=== PATIENT | female | born 1960 | race Caucasian/White ===

== ENCOUNTER 2017-04-25 16:48 | Emergency (ER) | payer MEDICAID ==
[2017-06-20] MEDS ORDERED: MIDODRINE HCL5 MG PO (08:14)
[2017-06-20] MEDS ORDERED: ASPIRIN EC81 M1 PO (08:15)
[2017-06-20] MEDS ORDERED: [UNRECOGNIZED DRUG - OTHER] PO (08:15)
[2017-06-21 08:24] VITALS: BMI 26.1
== END 2017-04-25 19:15 | disposition home or self-care (01) ==
LOC: D.ER 16:48
DX: M77.9 Enthesopathy, unspecified (principal); F17.200 Nicotine dependence, unspecified, uncomplicated

== ENCOUNTER → 2017-05-21 11:06 | Outpatient (CLI) | payer MEDICAID ==
[~2017-05-21 11:06] MED LIST: ASPIRIN EC81 M1 PO; MEPERIDINE HCL50 MG PO; MIDODRINE HCL5 MG PO; [UNRECOGNIZED DRUG - OTHER] PO
[2017-06-21 08:24] VITALS: BMI 26.1
== END | disposition home or self-care (01) ==
LOC: D.MRI 05-08 10:30
DX: M25.531 Pain in right wrist (principal)

== ENCOUNTER 2017-06-21 06:15 | Day surgery (SDC) | payer MEDICAID ==
[2017-06-20 09:29] LABS: HEMOGLOBIN 13.4 g/dL (12-16); MCH 32.4 pg (26.0-34.0); MCHC 33.5 g/dL (31.0-37.0); MCV 96.6 fL (80.0-100.0); MEAN PLATELET VOLUME 9.9 fL (7.4-10.4); RBC 4.14 10x6/uL (4.00-5.40); RDW 13.5 % (11.5-14.5); WBC 7.6 10x3/uL (4.8-10.8)
[~2017-06-21] VITALS: Ht 160 cm; Wt 66.7 kg
--- NOTE | ~2017-06-21 | OP ---
PATIENT NAME: LOBO ESPINOZA MEDICAL RECORD: [id number] :60 LOCATION:[facility] ADMISSION DATE: SURGEON: CHERY BLACK MD DATE OF OPERATION: 06/21/2017 PREOPERATIVE DIAGNOSIS: Recurrent de Quervain stenosing tenosynovitis of the right wrist. POSTOPERATIVE DIAGNOSIS: Recurrent de Quervain stenosing tenosynovitis of the right wrist. PROCEDURE: De Quervain's release. SURGEON: Chery Black MD ANESTHESIA: General. INTRAOPERATIVE COMPLICATIONS: None. SUMMARY OF PATHOLOGIC FINDINGS: The patient had a very scarred in superficial branch of the radial nerve and a recurrence of her stenotic tenosynovitis likely causing the patient's symptoms of the neuropraxia as well as pain at the radial styloid of the right upper extremity. OPERATIVE SUMMARY IN DETAIL: After obtaining the appropriate preoperative orthopedic surgery consent as well as anesthetic consultation, evaluation and clearance, the patient was brought to the operating room and placed on the operating room table in supine position. After adequate general laryngeal mask airway was administered, tourniquet was placed about the proximal aspect of the right upper extremity. Right upper extremity was then prepped and draped in routine sterile fashion. The arm was elevated and exsanguinated and tourniquet was insufflated to 250 mmHg. An incision was made over the radial styloid in line with the previous incision. Gentle dissection was carried down. The superficial branch of the radial nerve was identified and it was grossly adherent to scar tissue in the area. Small 6-0 Prolenes were identified from previous operation. These were all removed and then an incision was made in the tendon sheath immediately revealing synovial fluid and synovitis. Parts of the synovitis were removed. The sheath was excised in its entirety. At this point, the wound was irrigated and then closed with 4-0 Prolene in running fashion. The area was locally infiltrated with 0.25% Marcaine plain. Sterile dressings were applied. The patient was awakened and taken to the recovery room in stable condition. All final needle and sponge counts were correct. TRANSINT:[id number] Voice Confirmation ID: [id number] DOCUMENT ID: [id number] CHERY BLACK MD at 1349 CC: [id number] DICTATION DATE: 06/21/17 1021 [facility] OPERATOR: 06/21/17 1556 [facility] 06/21/17 [id number] [place] [address]
[~2017-06-21 06:15] MED LIST changes: -MEPERIDINE HCL50 MG PO
[2017-06-21 08:24] VITALS: BP 104/43; Ht 160 cm; Wt 66.7 kg
[2017-06-21] MEDS ORDERED: MEPERIDINE HCL50 MG PO (10:18)
== END 2017-06-21 12:15 | disposition home or self-care (01) ==
LOC: D.OPS 06:15 → D.PAN 07:30 → D.OPS 08:45
PROVIDERS: Orthopaedic Surgery
DX: M65.4 Radial styloid tenosynovitis [de Quervain] (principal); Z01.812 Encounter for preprocedural laboratory examination

== ENCOUNTER 2017-07-02 17:36 | Emergency (ER) | payer MEDICAID ==
[2017-06-21 08:24] VITALS: BMI 26.1
[~2017-07-02 17:36] MED LIST changes: +MEPERIDINE HCL50 MG PO
== END 2017-07-02 20:35 | disposition home or self-care (01) ==
LOC: D.ER 17:36
DX: G89.18 Other acute postprocedural pain (principal); F17.200 Nicotine dependence, unspecified, uncomplicated

== ENCOUNTER 2017-07-31 09:04 | Emergency (ER) | payer MEDICAID ==
[~2017-07-31] VITALS: Ht 160 cm; Wt 65.5 kg
[2017-07-31 09:13] VITALS: Ht 160 cm; Wt 65.5 kg
[2017-07-31 11:15] LABS: ALBUMIN 3.6 g/dL (3.4-5.0); ALKALINE PHOSPHATASE 97 U/L (46-116); ALT (SGPT) 12 U/L (10-68); BILIRUBIN - TOTAL 0.34 mg/dL (0.2-1.3); CALC OSMOLALITY 280 mosm/kg (275-300); CALCIUM 10.4 mg/dL (8.5-10.1); CARBON DIOXIDE 25.7 mmol/L (21.0-32.0); CHLORIDE - SERUM 107 mmol/L (98-107); CREATININE - SERUM 0.8 mg/dL (0.6-1.3); GLUCOSE 92 mg/dL (74-106); POTASSIUM - SERUM 4.5 mmol/L (3.5-5.1); PROTEIN - SERUM 7.2 g/dL (6.4-8.2); SODIUM 141 mmol/L (136-145); UREA NITROGEN 13 mg/dL (7-18); eGFR NON AFRICAN AMERICAN 78 mL/min (90-120)
[2017-07-31 11:38] LABS: BASOPHILS 0.3 % (0-2); EOSINOPHILS 0.5 % (0-7); HEMATOCRIT 40.6 % (36.0-48.0); HEMOGLOBIN 13.6 g/dL (12-16); IMMATURE GRANULOCYTES 0.3 % (0-5); LYMPHOCYTES 26.2 % (15-50); MCH 32.6 pg (26.0-34.0); MCHC 33.5 g/dL (31.0-37.0); MCV 97.4 fL (80.0-100.0); MEAN PLATELET VOLUME 10.3 fL (7.4-10.4); MONOCYTES 8.2 % (2-11); NEUTROPHILS 64.5 % (40-80); PLATELET COUNT 207 10x3/uL (130-400); RBC 4.17 10x6/uL (4.00-5.40); WBC 7.5 10x3/uL (4.8-10.8)
[2017-07-31] MEDS ORDERED: IBUPROFEN800 MG PO (13:32)
[2017-07-31] MEDS ORDERED: ACETAMINOPHEN500 M1 PO (13:32)
[2017-07-31] MEDS ORDERED: PENICILLIN V P500 MG PO (13:33)
[2017-07-31] MEDS ORDERED: CYCLOBENZAPRINE10 MG PO (13:33)
[2017-07-31 13:41] VITALS: BP 101/051
== END 2017-07-31 13:43 | disposition home or self-care (01) ==
LOC: D.ER 09:04
PROVIDERS: Family Medicine
DX: K05.6 Periodontal disease, unspecified (principal); K02.9 Dental caries, unspecified